=== PATIENT | female | born 1945 | race Caucasian/White ===

== ENCOUNTER 2018-03-19 10:00 | Outpatient (CLI) | payer MEDICARE, BC ==
--- NOTE | 2018-03-19 11:10 | RAD ---
LUMBAR SPINE FIVE VIEWS: HISTORY: Back pain. Degenerative disk disease. FINDINGS: Multilevel degenerative changes are present. There is grade 1-2 anterolisthesis of L5/S1. Minimal r etrolisthesis of L4/L5 is seen. There is also mild retrolisthesis of the L2/L3 vertebral bodies. No compression fracture or bony destruction is identified. No definite spondylolysis is seen. POS: [facility]
== END 2018-03-19 10:01 | disposition home or self-care (01) ==
LOC: NAV RAD 10:00
PROVIDERS: ATTEND Family Medicine
DX: M51.36 Other intervertebral disc degeneration, lumbar region (principal)
CPT/HCPCS: 72110

== ENCOUNTER 2018-10-10 09:27 | Emergency (ER) | payer MEDICARE, BC ==
[2018-10-10] MEDS ORDERED: predniSONE 20 MG TAB ONE (10:15)
== END 2018-10-10 10:24 | disposition home or self-care (01) ==
LOC: NAV ERS 09:27
DX: L50.0 Allergic urticaria (principal); I10 Essential (primary) hypertension; E05.90 Thyrotoxicosis, unspecified without thyrotoxic crisis or storm; F41.9 Anxiety disorder, unspecified; F32.9 Major depressive disorder, single episode, unspecified; Z79.899 Other long term (current) drug therapy
CPT/HCPCS: 99282

== ENCOUNTER 2023-07-09 14:54 | Emergency (ER) | payer MEDICARE ==
[2023-07-09] MEDS ORDERED: Metoprolol Tartrate 5 MG (5 mL) VIAL ONE (15:32)
[2023-07-09 15:34] LABS: #Eosinphils 0.1 thou/uL (0.0-0.7); #Lymphocytes 1.6 thou/uL (1.20-3.40); #Monocytes 0.4 thou/uL (0.11-0.59); #Neutrophils 4.9 thou/uL (1.40-6.50); %Basophils 0.6 % (0.0-1.0); %Eosinophils 1.7 % (0.0-10.0); %Lymphocytes 22.2 % (21.0-51.0); %Monocytes 5.6 % (0.0-10.0); Hematocrit 37.1 % (36.0-47.0); Hemoglobin 12.1 g/dL (12.0-16.0); Mean Corpuscular HGB CONC 32.6 g/dL (32.0-36.0); Mean Corpuscular Volume 95.1 fl (78.0-98.0); Platelet Count 291 10x3/uL (130-400); RBC Distribution Width 11.9 % (11.5-14.5)
[2023-07-09 15:47] LABS: ALT (SGPT) 75 U/L (8-55); AST (SGOT) 56 U/L (5-34); Albumin 3.9 g/dL (3.4-4.8); Alkaline Phosphatase 74 U/L (40-110); Anion Gap 15 mmol/L (10-20); BUN (Urea Nitrogen) 13 mg/dL (9.8-20.1); Bilirubin, Total 0.4 mg/dL (0.2-1.2); Calc. Creatinine Clearance 0 mL/min (70-130); Calcium 8.6 mg/dL (7.8-10.44); Carbon Dioxide 22 mmol/L (23-31); Chloride 105 mmol/L (98-107); Estimated GFR 75; Globulin 2.6 g/dL (2.4-3.5); Glucose 141 mg/dL (83-110); Magnesium 1.5 mg/dL (1.6-2.6); Potassium 4.5 mmol/L (3.5-5.1); Protein, Total 6.5 g/dL (5.8-8.1); Sodium 137 mmol/L (136-145)
[2023-07-09 15:49] LABS: Troponin I 0.014 ng/mL (< 0.028)
[2023-07-09] MEDS ORDERED: dilTIAZem 25 MG/5 ML VIAL ONE ×2 (16:04→20:30)
[2023-07-09] MEDS ORDERED: dilTIAZem 60 MG TAB ONE (17:33)
[2023-07-09] MEDS ORDERED: Enoxaparin 80 MG (0.8 mL) SYRINGE ONE (17:34)
[2023-07-09] MEDS ORDERED: dilTIAZem 125 MG/25 ML SDV ONE (21:04)
[2023-07-09] MEDS ORDERED: Sodium Chloride 0.9% 100 ML ONE (21:05)
== END 2023-07-09 22:00 | disposition short-term general hospital (02) ==
LOC: NAV ERS 14:54
DX: I48.92 Unspecified atrial flutter (principal); I10 Essential (primary) hypertension; E03.9 Hypothyroidism, unspecified; Z79.899 Other long term (current) drug therapy
CPT/HCPCS: 80053; 83735; 83880; 84443; 84484; 85025; 93005; 94760; 96365; 96372; 96375; 96376; J1650